=== PATIENT | male | born 1970 | race Caucasian/White ===

== ENCOUNTER 2019-05-10 11:33 | Day surgery (SDC) | payer OTHER ==
[2019-05-10] MEDS ORDERED: LACTATED RINGERS 1,000 ML IV ONE (14:02)
[2019-05-10] MEDS ORDERED: MIDAZOLAM 2 MG/2 ML VIAL IVP ONE (14:23)
[2019-05-10] MEDS ORDERED: fentaNYL 250 MCG/5 ML VIAL IVP ONE (14:23)
[2019-05-10 14:48] VITALS: BP 121/71
== END 2019-05-10 11:34 | disposition home or self-care (01) ==
LOC: SDS 11:33
PROVIDERS: ATTEND Surgery
PROC: 0DJD8ZZ Inspection of Lower Intestinal Tract, Via Natural or Artificial Opening Endoscopic (ICD-10-PCS; principal; 2019-05-10 13:00)
DX: Z12.11 Encounter for screening for malignant neoplasm of colon (principal); K64.8 Other hemorrhoids; G47.30 Sleep apnea, unspecified; Z87.891 Personal history of nicotine dependence; E66.9 Obesity, unspecified; Z68.37 Body mass index [BMI] 37.0-37.9, adult
CPT/HCPCS: 45378; J3010; J7120

== ENCOUNTER 2019-10-10 17:33 | Outpatient (CLI) | payer OTHER | END 2019-10-10 17:34 | disposition EMS.NT | LOC: EMS 17:33 | PROVIDERS: ATTEND Surgery | DX: Z04.1 Encounter for examination and observation following transport accident (principal) ==

== ENCOUNTER 2019-10-10 18:59 | Emergency (ER) | payer OTHER ==
[2019-10-10 19:42] VITALS: BP 161/99
[2019-10-10] MEDS ORDERED: KETOROLAC 60 MG/2 ML VIAL IM STA (22:04)
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
[2019-10-10] MEDS ORDERED: HYDROcod/ACET 5/325 Prepack 4 PO STA (23:19)
[2019-10-10] MEDS ORDERED: CYCLOBENZAPRINE 10 MG Prepack 2 PO PRN (23:19)
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
== END 2019-10-10 23:46 | disposition home or self-care (01) ==
LOC: ED 18:59
DX: S16.1XXA Strain of muscle, fascia and tendon at neck level, initial encounter (principal); S06.0X1A Concussion with loss of consciousness of 30 minutes or less, initial encounter; S63.502A Unspecified sprain of left wrist, initial encounter; S70.02XA Contusion of left hip, initial encounter; V89.2XXA Person injured in unspecified motor-vehicle accident, traffic, initial encounter; Y93.89 Activity, other specified; Y92.410 Unspecified street and highway as the place of occurrence of the external cause
CPT/HCPCS: 70450; 72100; 72125; 96372; 99284

== ENCOUNTER 2020-02-29 06:01 | Emergency (ER) | payer OTHER ==
[2020-02-29] MEDS ORDERED: SODIUM CHLORIDE 0.9% 1,000 ML IV ONE (06:33)
[2020-02-29 06:51] LABS: BASOPHILS % (AUTO) 0.3 %; EOSINOPHILS % (AUTO) 0.4 %; HGB - HEMOGLOBIN 16.2 g/dL (14.0-18.0); LYMPHOCYTES # (AUTO) 0.5 10^3/uL (1.5-3.5); MEAN CORPUSCULAR HEMOGLOBIN 32.9 pg (27.0-31.0); MEAN CORPUSCULAR HGB CONC 35.4 g/dL (32.0-36.0); MEAN CORPUSCULAR VOLUME 92.7 fL (80.0-94.0); MEAN PLATELET VOLUME 8.7 fL (7.4-11.4); MONOCYTES # (AUTO) 0.3 10^3/uL (0.0-1.0); MONOCYTES % (AUTO) 2.5 %; NEUTROPHILS # (AUTO) 10.5 10^3/uL (1.5-6.6); NEUTROPHILS % (AUTO) 92.3 %; PLT - PLATELET COUNT 245 10^3/uL (130-450); RED BLOOD COUNT 4.93 10^6/uL (4.70-6.10); RED CELL DISTRIBUTION WIDTH 11.7 % (12.0-15.0); WHITE BLOOD COUNT 11.3 x10^3/uL (4.8-10.8)
[2020-02-29 07:00] LABS: ALBUMIN 4.5 g/dL (3.2-5.5); ALBUMIN/GLOBULIN RATIO 1.3 (1.0-2.2); BILIRUBIN,TOTAL 0.7 mg/dL (0.2-1.0); CALCIUM 8.7 mg/dL (8.5-10.3); CREATININE 1.2 mg/dL (0.6-1.2)
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
[2020-02-29 07:07] LABS: INR 1.1 (0.8-1.2); PT - PROTHROMBIN TIME 12.2 secs (9.9-12.6)
[2020-02-29] MEDS ORDERED: KETOROLAC 30 MG/ML VIAL IVP STA (07:38)
[2020-02-29 07:52] VITALS: BP 145/83
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
[2020-02-29] MEDS ORDERED: ACETAMINOPHEN 325 MG TABLET PO STA (08:10)
[2020-02-29] MEDS ORDERED: ONDANSETRON 4 MG/2 ML VIAL IVP STA (08:10)
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
--- NOTE | 2020-03-10 20:43 | ED Physician Documentation ---
ED Addendum - Addendum Addendum: Patient is tolerating p.o. without difficulty. Influenza swabs are negative. Given discharge instructions as printed by Dr. Calderon. Departure - Departure Disposition: 01 Home, Self Care Clinical Impression: Syncope Qualifiers: Syncope type: unspecified Qualified Code(s): R55 - Syncope and collapse Vomiting Qualifiers: Vomiting type: unspecified Vomiting Intractability: non-intractable Nausea presence: with nausea Qualified Code(s): R11.2 - Nausea with vomiting, unspecified Condition: Stable Instructions: ED Fainting Unkn Cause, ED Nausea Vomiting Prescriptions: Ondansetron Odt [Zofran Odt] 4 mg TL Q6H PRN #10 tablet PRN Reason: Nausea / Vomiting Discharge Date/Time: 02/29/20 09:14
== END 2020-02-29 09:14 | disposition home or self-care (01) ==
LOC: ED 06:01
DX: R55 Syncope and collapse (principal); R11.10 Vomiting, unspecified; R50.9 Fever, unspecified; M79.10 Myalgia, unspecified site; S05.10XA Contusion of eyeball and orbital tissues, unspecified eye, initial encounter; W22.8XXA Striking against or struck by other objects, initial encounter; Y93.89 Activity, other specified; Y92.002 Bathroom of unspecified non-institutional (private) residence as the place of occurrence of the external cause
CPT/HCPCS: 36415; 70450; 72125; 80053; 83690; 84484; 85025; 85610; 87275; 87276; 87635; 93005; 96361; 96374; 96375; 99283; 99284; A9270; 81599